=== PATIENT | male | born 1975 | race Caucasian/White ===

== ENCOUNTER 2019-03-28 01:01 | Emergency (ER) | payer MEDICAID, OTHER ==
[2019-03-28 03:18] LABS: ADD UMIC NO; UR ASCORBIC ACID NEGATIVE (NEGATIVE); UR BILIRUBIN (Dip) NEGATIVE (NEGATIVE); UR BLOOD (Dip) NEGATIVE (NEGATIVE); UR CLARITY CLEAR (CLEAR); UR COLOR COLORLESS (YELLOW); UR GLUCOSE (Dip) NEGATIVE (NEGATIVE); UR KETONES (Dip) NEGATIVE (NEGATIVE); UR LEUKOCYTE ESTERASE (Dip) NEGATIVE Leu/ul (NEGATIVE); UR NITRITE (Dip) NEGATIVE (NEGATIVE); UR SPECIFIC GRAVITY (Dip) 1.004 (1.003-1.030); UR TOTAL PROTEIN (Dip) NEGATIVE (NEGATIVE); UR UROBILINOGEN (Dip) NEGATIVE (NEGATIVE)
[2019-03-28] MEDS: KETOROLAC 30 MG INJ IM (03:21)
== END 2019-03-28 05:30 | disposition home or self-care (01) ==
LOC: FTE 01:01
DX: N50.9 Disorder of male genital organs, unspecified (principal); N45.2 Orchitis; M62.830 Muscle spasm of back; M54.5 Low back pain
CPT/HCPCS: 72100; 76870; 81003; 87086; 87591; 96372; 99285-25